=== PATIENT | male | born 1950 | race Caucasian/White ===

== ENCOUNTER 2024-01-08 17:14 | Emergency (ER) | payer OTHER ==
[~2024-01-08] VITALS: Ht 177.8 cm; Wt 68.0 kg
[2024-01-08 17:19] VITALS: BP_SYST 119; PULSE 98; RESP 20; TEMP 98.3; O2SAT 96
[2024-01-08 17:45] LABS: EOSINOPHILS # (AUTO) 0.1 K/uL (0.0-0.4); EOSINOPHILS % (AUTO) 0.7 % (0.0-4.0); LYMPHOCYTES # (AUTO) 2.1 K/uL (1.0-5.5); MONOCYTES # (AUTO) 0.7 K/uL (0.0-1.0)
[2024-01-08 17:52] LABS: BASOPHILS % (AUTO) 0.2 % (0.0-2.0); HEMATOCRIT 45.6 % (36-54); LYMPHOCYTES % (AUTO) 20.2 % (20.5-51.5); MEAN CORPUSCULAR HEMOGLOBIN 31 pg (27-31); MEAN CORPUSCULAR HGB CONC 35 % (32-36); MEAN CORPUSCULAR VOLUME 87 fL (79.0-98.0); MONOCYTES % (AUTO) 6.2 % (1.7-9.3); NEUTROPHILS # (AUTO) 7.7 K/uL (1.8-7.7); NEUTROPHILS % (AUTO) 72.7 % (40.0-70.0); PLATELET COUNT (AUTO) 271 K/uL (130-430); RED BLOOD CELL COUNT(AUTO) 5.27 MIL/uL (4.2-6.2); RED CELL DISTRIBUTION WIDTH 14.1 % (9.0-15.0); WHITE BLOOD COUNT (AUTO) 10.6 K/uL (4.8-10.8)
[2024-01-08 18:08] LABS: INR 1.2 (0.80-1.20); PROTHROMBIN TIME 12.2 SECS (9.5-12.5)
[2024-01-08 18:09] LABS: ALANINE AMINOTRANSFERASE 21 U/L (12-78); ALBUMIN 4.2 g/dL (3.4-4.8); AMYLASE 70 U/L (0-100); ANION GAP 9 (5-15); ASPARTATE AMINOTRANSFERASE 26 U/L (10-37); BILIRUBIN,DIRECT 0.3 mg/dL (0.0-0.3); CALCIUM 9.6 mg/dL (8.4-11.0); CARBON DIOXIDE 34 mmol/L (23-29); CHLORIDE 97 mmol/L (98-107); CREATININE 1.76 mg/dL (0.55-1.30); GLUCOSE 137 mg/dL (74-106); LIPASE 85 U/L (16-77); SODIUM SERUM 140 mmol/L (136-145); TOTAL BILIRUBIN 1.2 mg/dL (0.0-1.0); TOTAL PROTEIN, SERUM 8.9 g/dL (6.4-8.3); UREA NITROGEN, BLOOD 36 mg/dL (8-21)
[2024-01-08 18:15] LABS: POTASSIUM 2.4 mmol/L (3.5-5.1)
[2024-01-08] MEDS: POTASSIUM CHLORIDE 20 MEQ/PKT PACKET PO ONE (18:29)
[2024-01-08] MEDS ORDERED: ATOR40TA68 PO (18:53)
[2024-01-08] MEDS ORDERED: PRAM2.25 PO (18:53)
[2024-01-08] MEDS ORDERED: POTA-197 PO (18:53)
[2024-01-08] MEDS ORDERED: GLYC2TAB21 PO (18:53)
[2024-01-08] MEDS ORDERED: ATEN50TA PO (18:53)
[2024-01-08] MEDS ORDERED: APIX5TAB PO (18:53)
[2024-01-08] MEDS ORDERED: FURO-149 PO (18:53)
[2024-01-08] MEDS ORDERED: CARB1TAB10 PO (18:53)
[2024-01-08] MEDS ORDERED: FURO-150 PO (18:53)
[2024-01-08] MEDS ORDERED: OMEP20CA15 PO (18:53)
[2024-01-08] MEDS ORDERED: HYG25 PO (18:53)
[2024-01-08] MEDS ORDERED: PRAM0.375 PO (18:53)
[2024-01-08] MEDS ORDERED: PIMA34CA PO (18:53)
[2024-01-08] MEDS ORDERED: RASA1TAB PO (18:53)
[2024-01-08] MEDS ORDERED: CLON0.5T4 PO (18:53)
[2024-01-08] MEDS ORDERED: SER25 PO (18:53)
[2024-01-08] MEDS: SODIUM PHOSPHATE,MONO-DIBASIC 133 ML ENEMA RC ONE ×2 (21:32→22:15)
[2024-01-09 00:30] VITALS: BP_SYST 119; PULSE 98; RESP 20; TEMP 98.3; O2SAT 96
[2024-01-09] MEDS: SODIUM PHOSPHATE,MONO-DIBASIC 133 ML ENEMA RC ONE (00:30)
== END 2024-01-09 00:30 | disposition home or self-care (01) ==
LOC: SED 17:14
DX: K59.00 Constipation, unspecified (principal); Z79.899 Other long term (current) drug therapy; Z79.2 Long term (current) use of antibiotics
CPT/HCPCS: 36415; 80048; 80076; 82150; 83605; 83690; 85025; 85610; 85730; 93005; 99284